=== PATIENT | female | born 1965 | race Two or more races ===

== ENCOUNTER 2017-06-17 23:16 | Emergency (ER) | payer BC ==
[~2017-06-17] VITALS: Ht 175.3 cm; Wt 77.1 kg
[2017-06-17] MEDS ORDERED: NKM (23:26)
--- NOTE | 2017-06-17 23:37 | Emergency Room Report ---
History of Present Illness General Chief Complaint: Head Injury Source: Patient Present Illness HPI Is a 51-year-old female with no significant past medical history. She presents with head and facial injury. She was walking her dog and tripped over an even Tylenol. She fell onto the left face and head. No loss of consciousness. Onset was acute and occurred just prior to arrival. Pain is 7/10. Bleeding over the left eyebrow area. Allergies: Coded Allergies: No Known Allergies (Unverified , 06/17/17) Patient History Past Medical History: see triage record, old chart reviewed Past Surgical History: none Pertinent Family History: none Social History: Denies: smoking Last Menstrual Period: 06/16/17 Now: No Immunizations: other Reviewed Nursing Documentation: PMH: Agreed, PSxH: Agreed Nursing Documentation-PMH Past Medical History: No Stated History Review of Systems Eye: Denies: eye pain, blurred vision ENT: Denies: ear pain, nose congestion, throat swelling Respiratory: Denies: cough, shortness of breath Cardiovascular: Denies: chest pain, palpitations Gastrointestinal: Denies: abdominal pain, diarrhea, nausea, vomiting Musculoskeletal: Denies: back pain, joint pain Skin: Denies: rash Neurological: Denies: headache, numbness Endocrine: Denies: increased thirst, increased urine Hematologic/Lymphatic: Denies: easy bruising All Other Systems: negative except mentioned in HPI Physical Exam Vital Signs Date Time Temp Pulse Resp B/P (MAP) Pulse Ox O2 Delivery O2 Flow Rate FiO2 06/17/17 23:20 98.1 85 17 115/76 100 Room Air vitals normal Sp02 EP Interpretation: reviewed, normal General Appearance: well appearing, no apparent distress, alert Head: normocephalic, atraumatic Eyes: left eye other - Left eyebrow with small puncture wound and losing blood. No foreign body., bilateral eye PERRL, bilateral eye EOMI ENT: hearing grossly normal, normal pharynx, other - Two millimeter laceration to the chin. No active bleeding. Not through and through. Neck: full range of motion, supple, no meningismus Respiratory: chest non-tender, lungs clear, normal breath sounds Cardiovascular #1: regular rate, rhythm, no murmur Gastrointestinal: normal bowel sounds, non tender, no mass, no organomegaly, no bruit, non-distended Musculoskeletal: back normal, gait/station normal, normal range of motion Psychiatric: mood/affect normal Skin: warm/dry Procedures Laceration/Wound Repair Laceration/Wound Repair : Consent: Verbal Wound Location: face Wound's Depth, Shape: superficial Wound Length (cm): 1 Wound Explored: clean Irrigated w/ Saline (ccs): 500 Wound Repaired With: Dermabond Patient Tolerated: Well Complications: None Progress Wound clean with normal saline. Dabbed dry. Both wounds are small and show no foreign body. I closed with Dermabond. Patient procedure without a problem. Medical Decision Making Diagnostic Impression: Primary Impression: Acute head injury Qualified Codes: S09.90XA - Unspecified injury of head, initial encounter Additional Impressions: Facial contusion Qualified Codes: S00.83XA - Contusion of other part of head, initial encounter Chin laceration Qualified Codes: S01.81XA - Laceration without foreign body of other part of head, initial encounter Laceration of eyebrow, left Qualified Codes: S01.112A - Laceration without foreign body of left eyelid and periocular area, initial encounter ER Course Patient with head facial injury. She has laceration but no internal bleeding of fracture. We'll discharge home. CT/MRI/US Diagnostic Results CT/MRI/US Diagnostic Results : Imaging Test Ordered: CT head Impression read by radiologist. No intracranial fracture or bleed. CT facial bones: Read by radiologist. Negative. Last Vital Signs Date Time Temp Pulse Resp B/P (MAP) Pulse Ox O2 Delivery O2 Flow Rate FiO2 06/17/17 23:20 98.1 85 17 115/76 100 Room Air Status: improved Disposition: HOME, SELF-CARE Condition: Stable Scripts Hydrocodone/Acetaminophen 5-325* (HYDROCODONE/ACETAMINOPHEN 5-325*) 1 Each Tablet 1 TAB ORAL Q6H Y for For Pain, #20 TAB 0 Refills Prov: LANCE ROMERO M.D. 06/18/17 Patient Instructions: HEAD INJURY, No Wake-Up (Adult) Additional Instructions: Followup with your DrShae in 7 days. Return if worse. LANCE ROMERO M.D. Jun 17, 2017 23:37
[2017-06-17] MEDS ORDERED: Tetanus/Diptheria/Pertussis Vaccine 0.5ml Syr IM ONE (23:45)
[2017-06-17] MEDS ORDERED: Norco 5mg/325mg tab ORAL ONE (23:45)
[2017-06-18 00:20] VITALS: BP 114/80
[2017-06-18] MEDS ORDERED: HYDROCODON-ACE1 EA15 ORAL (00:47)
[2017-06-18 01:02] VITALS: BP 114/80
--- NOTE | 2017-06-18 09:00 | Diagnostic Imaging Report ---
Indication: TRAUMA pain, status post fall Technique: Continuous helical CT scanning of the head was performed without intravenous contrast material. Axial and coronal 5 mm sections were generated. Radiation dose was minimized using automated exposure control Dose: Total Dose Length Product - DLP [address] Dose Index - CTDIvol(s) 70.38 mGy. Comparison: Findings: The ventricular system is normal in size and configuration. There is no shift of midline structures. No abnormal extra-axial fluid collections are noted. There is no evidence of intracerebral bleeding. No other abnormal high or low density areas are noted within the brain. Intact calvarium. Visualized orbits and sinuses are unremarkable. There is minimal left periorbital soft tissue swelling Impression: Normal CT scan of the head without contrast material. Minimal left periorbital soft tissue swelling on the left This agrees with the preliminary interpretation provided overnight by [facility]. The CT scanner at [facility] is accredited by the [employer] and the scans are performed using protocols designed to limit radiation exposure to as low as reasonably achievable to attain images of sufficient resolution adequate for diagnostic evaluation.
--- NOTE | 2017-06-18 09:02 | Diagnostic Imaging Report ---
Indications: TRAUMA Technique: Spiral images obtained through the facial bones. No IV contrast utilized. Multiplanar reconstructions were generated.Total dose length product 559 mGycm. CTDIvol(s) 28mGy. Dose reduction achieved using automated exposure control Comparison: None Findings: There is mild left periorbital soft tissue swelling. There is also surface irregularity which may indicate a superficial laceration. No evidence of acute fracture demonstrated. The sinuses are clear. The dentition is intact. Impression: Evidence of mild left paravertebral soft tissue injury No acute bony trauma This agrees with the preliminary interpretation provided overnight by [facility]. The CT scanner at [facility] is accredited by the [employer] and the scans are performed using protocols designed to limit radiation exposure to as low as reasonably achievable to attain images of sufficient resolution adequate for diagnostic evaluation.
== END 2017-06-18 01:02 | disposition home or self-care (01) ==
LOC: EMR 23:50
DX: S09.90XA Unspecified injury of head, initial encounter (principal); W01.0XXA Fall on same level from slipping, tripping and stumbling without subsequent striking against object, initial encounter; Y93.K1 Activity, walking an animal; Y99.9 Unspecified external cause status; S00.83XA Contusion of other part of head, initial encounter; S01.81XA Laceration without foreign body of other part of head, initial encounter; S01.112A Laceration without foreign body of left eyelid and periocular area, initial encounter; Z23 Encounter for immunization
CPT/HCPCS: 70450; 70486; 90471; 90715; 99284

== ENCOUNTER 2019-06-29 15:42 | Emergency (ER) | payer BC ==
[~2019-06-29] VITALS: Ht 175.3 cm; Wt 81.6 kg
[~2019-06-29 15:42] MED LIST: HYDROCODON-ACE1 EA15 ORAL; NKM
[2019-06-29 15:47] VITALS: BP 110/72
[2019-06-29] MEDS ORDERED: Methocarbamol 750mg tab ORAL ONE (16:30)
[2019-06-29] MEDS ORDERED: Ketorolac 30mg Inj IM ONE (16:30)
[2019-06-29] MEDS ORDERED: LIDODERM700 M1 TOPIC (17:17)
[2019-06-29] MEDS ORDERED: ROBAXIN-750750 MG PO (17:17)
[2019-06-29] MEDS ORDERED: IBUPROFEN600 MG ORAL (17:17)
[2019-06-29 17:21] VITALS: BP 122/78
--- NOTE | 2019-06-29 17:21 | NUR ---
ER DISCHARGE NOTE: Pt was seen due to lower back pain. Patient is cleared to be discharged per PA, pt is aox4, on room air, with stable vital signs. pt was given dc and prescription instructions, pt was able to verbalize understanding, pt id band removed. pt is able to ambulate with steady gait. pt took all belongings.
--- NOTE | 2019-06-29 17:56 | Emergency Room Report ---
History of Present Illness General Chief Complaint: Back Pain-No Injury Source: Patient Present Illness HPI 53-year-old female presents ED for evaluation. Ending up back pain which started 3 days ago. States that she "threw out" her back. Recall any specific fall or injury that triggered her pain. Pain is pulsating, 7 out of 10, nonradiating. Worse with twisting and bending. Denies any incontinence. Denies any leg or motor weakness. States she went to the chiropractor today and states the symptoms do not improve after treatment. Has had similar back pain in the past. No other aggravating relieving factors. Denies any other associated symptoms Allergies: Coded Allergies: No Known Allergies (Unverified , 06/17/17) Patient History Past Medical History: none Past Surgical History: none Pertinent Family History: none Social History: Denies: smoking, alcohol use, drug use Last Menstrual Period: 2017 Now: No Immunizations: UTD Reviewed Nursing Documentation: PMH: Agreed; PSxH: Agreed Nursing Documentation-PMH Past Medical History: No Stated History Review of Systems All Other Systems: negative except mentioned in HPI Physical Exam Vital Signs Date Time Temp Pulse Resp B/P (MAP) Pulse Ox O2 Delivery O2 Flow Rate FiO2 06/29/19 15:47 98.1 69 17 110/72 99 Room Air Sp02 EP Interpretation: reviewed, normal General Appearance: no apparent distress, alert, GCS 15, non-toxic Head: normocephalic Eyes: bilateral eye normal inspection, bilateral eye PERRL ENT: normal ENT inspection Neck: normal inspection Respiratory: normal inspection Cardiovascular #1: normal inspection Gastrointestinal: normal bowel sounds, non tender, soft, non-distended, no guarding, no rebound Rectal: deferred Genitourinary: no CVA tenderness, no vertebral tenderness Musculoskeletal: tender - paraspinal lumbar tenderness Neurologic: alert, oriented x3, responsive, motor strength/tone normal, sensory intact, speech normal Psychiatric: normal inspection Skin: no rash Lymphatic: normal inspection Medical Decision Making Diagnostic Impression: Primary Impression: Back pain Qualified Codes: M54.5 - Low back pain ER Course Hospital Course 53 yo F presents to ED c/o back pain Differential diagnoses include: Fracture, dislocation, sprain, contusion Clinical course Patient placed on stretcher. After initial history and physical, I ordered pain medications and Xrays of L spine Xrays prelim read shows no acute fracture/dislocation. On reassessment pain is improved. Discussed findings with patient. Pain is likely muscular. Will discharge to home with medications. I recommend follow-up with PMD to get physical therapy referral. Safe for discharge for close outpatient follow-up Diagnosis - back pain Stable and discharged to home with prescription for Motrin, robaxin, lidoderm. weight bear as tolerated. Followup with PMD. Return to ED if symptoms recur or worsen Other X-Ray Diagnostic Results Other X-Ray Diagnostic Results : X-Ray ordered: L spine # of Views/Limited Vs Complete: 3 View Indication: Pain EP Interpretation: Yes Interpretation: no dislocation, no soft tissue swelling, no fractures Impression: No acute disease Electronically Signed by: Electronically signed by Erlin Castillo MD Last Vital Signs Date Time Temp Pulse Resp B/P (MAP) Pulse Ox O2 Delivery O2 Flow Rate FiO2 06/29/19 15:47 98.1 69 17 110/72 (85) 99 Room Air Status: improved Disposition: HOME, SELF-CARE Condition: Stable Scripts Lidocaine Patch* (Lidoderm Patch*) 1 Each Adh..patch 1 PATCH TOPIC DAILY, #7 PATCH 0 Refills Patch(es) may remain in place for up to 12 hours in any 24-hour period. Prov: Erlin Castillo MD 06/29/19 Methocarbamol* (ROBAXIN-750*) 750 Mg Tablet 750 MG PO TID, #21 TAB 0 Refills Prov: Erlin Castillo MD 06/29/19 Ibuprofen* (MOTRIN*) 600 Mg Tablet 600 MG ORAL Q8H PRN for For Pain, #30 TAB 0 Refills Prov: Erlin Castillo MD 06/29/19 Patient Instructions: Back Pain, Adult Erlin Castillo MD Jun 29, 2019 17:56
--- NOTE | 2019-06-30 11:35 | Diagnostic Imaging Report ---
Indication: Lumbar spine pain Technique: 3 views of the lumbar spine Comparison: None Findings: Bony alignment is normal. Vertebral body heights are preserved. The disc spaces are preserved. Pedicles are intact. Sacral arches are preserved. Sacroiliac joint spaces are preserved Impression: Negative
== END 2019-06-29 17:21 | disposition home or self-care (01) ==
LOC: EMR 17:08
DX: M54.5 Low back pain (principal)
CPT/HCPCS: 72020; 96372; 99283; J1885